=== PATIENT | female | born 1955 | race African-American/Black ===

== ENCOUNTER 2018-02-19 17:26 | Emergency (ER) | payer MEDICARE, MEDICAID ==
[~2018-02-19] VITALS: Ht 160 cm; Wt 73.0 kg
[2018-02-20] MEDS ORDERED: HYDROCODONE/ACETAMINOPHEN 5/325MG TABLET PO ONE (00:45)
[2018-02-20 00:52] VITALS: BP 140/88
== END 2018-02-20 01:40 | disposition home or self-care (01) ==
LOC: ER 17:26
DX: M79.601 Pain in right arm (principal); I12.0 Hypertensive chronic kidney disease with stage 5 chronic kidney disease or end stage renal disease; N18.6 End stage renal disease; R00.0 Tachycardia, unspecified; W01.0XXA Fall on same level from slipping, tripping and stumbling without subsequent striking against object, initial encounter; Y92.89 Other specified places as the place of occurrence of the external cause; Z99.2 Dependence on renal dialysis; F17.210 Nicotine dependence, cigarettes, uncomplicated
CPT/HCPCS: 73030; 73060; 99284

== ENCOUNTER 2018-05-25 19:27 | Inpatient (IN) | payer MEDICARE, MEDICAID ==
[~2018-05-25] VITALS: Ht 152.4 cm; Wt 65.8 kg
[2018-05-25 20:58] LABS: HEMATOCRIT. 35.9 % (36.0-48.0); HEMOGLOBIN. 11.1 g/dL (12.0-16.0); MEAN CORPUSCULAR HEMOGLOBIN 26.5 pg (28.0-32.0); MEAN CORPUSCULAR VOLUME 85.7 fL (81.0-99.0); MEAN PLATELET VOLUME 10.2 fl (7.4-10.4); PLATELET 70 x1000/uL (130-400); RED BLOOD CELL COUNT 4.18 mill/uL (4.2-5.4); RED CELL DISTRIBUTION WIDTH 16.9 % (11.6-14.6)
[2018-05-25 21:01] LABS: CHLORIDE 91 mEq/L (98-107)
[2018-05-25 21:56] LABS: NUCLEATED RED BLOOD CELLS 4 /100 WBC; PLATELET ESTIMATE DECREASED
[2018-05-26] VITALS (7 sets, daily range): BP systolic 85–105; BP diastolic 50–66
[2018-05-26] MEDS ORDERED: LEVOFLOXACIN 750MG PREMIX 150 ML IV ONE (00:15)
[2018-05-26] MEDS ORDERED: VANCOMYCIN 1 G PREMIX 200 ML IV ONE (00:15)
[2018-05-26] MEDS ORDERED: CLONIDINE 0.1MG TABLET PO PRN (00:15)
[2018-05-26] MEDS ORDERED: ONDANSETRON HCL 4MG/2ML VIAL IV PRN (00:15)
[2018-05-26] MEDS ORDERED: LEVOFLOXACIN 500MG PREMIX 100 ML IV SCH (00:15)
[2018-05-26] MEDS ORDERED: DIPHENHYDRAMINE 50MG/ML VIAL IV PRN (00:15)
[2018-05-26] MEDS: SODIUM CHLORIDE 0.9% INJ 3ML FLUSH IVF SCH ×3 (06:36→21:04)
[2018-05-26 07:35] LABS: HEMATOCRIT. 28.7 % (36.0-48.0); HEMOGLOBIN. 9.2 g/dL (12.0-16.0); MEAN CORPUSCULAR HEMOGLOBIN 26.6 pg (28.0-32.0); MEAN CORPUSCULAR VOLUME 83.2 fL (81.0-99.0); MEAN PLATELET VOLUME 10.4 fl (7.4-10.4); PLATELET 59 x1000/uL (130-400); RED BLOOD CELL COUNT 3.45 mill/uL (4.2-5.4); RED CELL DISTRIBUTION WIDTH 16.7 % (11.6-14.6)
[2018-05-26 07:37] LABS: AMMONIA 31 uMol/L (<32)
[2018-05-26 08:45] LABS: PLATELET ESTIMATE DECREASED
[2018-05-26 10:15] LABS: CHLORIDE 92 mEq/L (98-107)
[2018-05-26] MEDS ORDERED: POTASSIUM CHLORIDE 20MEQ TABLET SR PO SCH (13:30)
[2018-05-26] MEDS ORDERED: SODIUM CHLORIDE 0.9% 500 ML IV ONE (13:31)
[2018-05-26] MEDS ORDERED: ALBUMIN HUMAN 25GM/100ML (25%) IV NR (14:30)
[2018-05-26] MEDS ORDERED: AMLO10TA80 PO (19:46)
[2018-05-26] MEDS ORDERED: CALC0.5C10 PO (19:47)
[2018-05-26] MEDS ORDERED: CLON0.2T PO (19:49)
[2018-05-26] MEDS ORDERED: DOCU250C69 PO (19:50)
[2018-05-26] MEDS ORDERED: BISA-81 PO (19:52)
[2018-05-26] MEDS ORDERED: SEVE800T8 PO (19:53)
[2018-05-26] MEDS ORDERED: FOLI1TAB87 PO (19:54)
[2018-05-26] MEDS ORDERED: MEGE40TA27 MT (19:56)
[2018-05-26] MEDS ORDERED: LOSA100T14 PO (19:57)
[2018-05-26] MEDS ORDERED: EPOETIN ALFA 10000UNITS/ML VIAL SUBCUT NR (21:00)
[2018-05-27] VITALS: BP 102/59
[2018-05-27 04:00] VITALS: BP 106/61
[2018-05-27 05:05] LABS: PHOSPHORUS 3.3 mg/dL (2.5-4.9)
[2018-05-27] MEDS: SODIUM CHLORIDE 0.9% INJ 3ML FLUSH IVF SCH ×3 (06:22→21:27)
[2018-05-27 06:37] LABS: HEMATOCRIT. 26.7 % (36.0-48.0); HEMOGLOBIN. 8.5 g/dL (12.0-16.0); MEAN CORPUSCULAR HEMOGLOBIN 26.9 pg (28.0-32.0); MEAN CORPUSCULAR VOLUME 84.2 fL (81.0-99.0); MEAN PLATELET VOLUME 10.3 fl (7.4-10.4); PLATELET 56 x1000/uL (130-400); RED BLOOD CELL COUNT 3.17 mill/uL (4.2-5.4); RED CELL DISTRIBUTION WIDTH 17.3 % (11.6-14.6)
[2018-05-27 08:15] VITALS: BP 102/57
[2018-05-27 09:58] LABS: PLATELET ESTIMATE DECREASED
[2018-05-27 12:06] VITALS: BP 103/59
[2018-05-27 16:28] VITALS: BP 124/49
[2018-05-27 20:00] VITALS: BP 101/61
[2018-05-28] VITALS: BP 126/65
[2018-05-28] MEDS ORDERED: LEVOFLOXACIN 500MG PREMIX 100 ML IV SCH (01:00)
[2018-05-28 04:00] VITALS: BP 120/71
[2018-05-28 06:34] LABS: HEMATOCRIT. 27.6 % (36.0-48.0); HEMOGLOBIN. 8.8 g/dL (12.0-16.0); MEAN CORPUSCULAR HEMOGLOBIN 26.8 pg (28.0-32.0); MEAN CORPUSCULAR VOLUME 83.8 fL (81.0-99.0); MEAN PLATELET VOLUME 9.1 fl (7.4-10.4); RED BLOOD CELL COUNT 3.29 mill/uL (4.2-5.4)
[2018-05-28] MEDS: SODIUM CHLORIDE 0.9% INJ 3ML FLUSH IVF SCH ×3 (06:36→22:03)
[2018-05-28 06:43] LABS: PLATELET 39 x1000/uL (130-400)
[2018-05-28 07:53] VITALS: BP 111/66
[2018-05-28 10:15] LABS: PLATELET ESTIMATE MARKEDLY DECREASED
[2018-05-28 11:25] LABS: PHOSPHORUS 3.3 mg/dL (2.5-4.9)
[2018-05-28] MEDS ORDERED: POTASSIUM CHLORIDE 20MEQ TABLET SR PO NR ×2 (11:30→13:45)
[2018-05-28] MEDS ORDERED: POTASSIUM CHLORIDE 20MEQ TABLET SR PO ONE (11:45)
[2018-05-28] MEDS: POTASSIUM CHLORIDE 20MEQ TABLET SR PO NR ×2 (12:05→12:08)
[2018-05-28] MEDS ORDERED: POTASSIUM CHLORIDE 20MEQ TABLET SR PO SCH ×2 (13:30)
[2018-05-28 15:42] VITALS: BP 103/65
[2018-05-29 05:45] VITALS: BP 111/73
[2018-05-29] MEDS: SODIUM CHLORIDE 0.9% INJ 3ML FLUSH IVF SCH ×3 (06:50→21:55)
[2018-05-29 07:00] VITALS: BP 103/68
[2018-05-29] MEDS: POTASSIUM CHLORIDE 20MEQ TABLET SR PO SCH (09:13)
[2018-05-29 10:35] LABS: BASOPHILS % 0.4 % (0.0-2.0); EOSINOPHILS % 0.2 % (0.0-5.0); HEMATOCRIT. 30.7 % (36.0-48.0); HEMOGLOBIN. 9.8 g/dL (12.0-16.0); LYMPHOCYTES % 9.6 % (20.0-50.0); MEAN CORPUSCULAR HEMOGLOBIN 26.6 pg (28.0-32.0); MEAN CORPUSCULAR VOLUME 83.6 fL (81.0-99.0); MEAN PLATELET VOLUME 9.9 fl (7.4-10.4); MONOCYTES % 6.7 % (2.0-8.0); NEUTROPHILS % 83.1 % (40.0-76.0); RED BLOOD CELL COUNT 3.67 mill/uL (4.2-5.4); RED CELL DISTRIBUTION WIDTH 18.8 % (11.6-14.6)
[2018-05-29 11:04] LABS: PLATELET 36 x1000/uL (130-400)
[2018-05-29 11:16] LABS: PHOSPHORUS 3.4 mg/dL (2.5-4.9)
[2018-05-29 12:11] VITALS: BP 108/70
[2018-05-29] MEDS ORDERED: VANCOMYCIN 1 G PREMIX 200 ML IV SCH (14:00)
[2018-05-29] MEDS ORDERED: MAGNESIUM SULFATE 2 GM in DEXTROSE 5% WATER 50 ML IV NR (15:00)
[2018-05-29 16:00] VITALS: BP 101/67
[2018-05-29 19:45] VITALS: BP 92/59
[2018-05-29] MEDS ORDERED: EPOETIN ALFA 10000UNITS/ML VIAL SUBCUT NR (21:00)
[2018-05-30] VITALS: BP 105/62
[2018-05-30] MEDS: SODIUM CHLORIDE 0.9% INJ 3ML FLUSH IVF SCH ×3 (00:40→21:12)
[2018-05-30] MEDS: CEFEPIME 1,000 MG in DEXTROSE 5% WATER 50 ML IV SCH ×2 (00:40→20:00)
[2018-05-30 04:00] VITALS: BP 92/56
[2018-05-30 07:02] LABS: BASOPHILS % 0.2 % (0.0-2.0); EOSINOPHILS % 0.8 % (0.0-5.0); HEMOGLOBIN. 8.5 g/dL (12.0-16.0); LYMPHOCYTES % 12.5 % (20.0-50.0); MEAN CORPUSCULAR HEMOGLOBIN 26.7 pg (28.0-32.0); MEAN CORPUSCULAR VOLUME 84.8 fL (81.0-99.0); MEAN PLATELET VOLUME 10.9 fl (7.4-10.4); NEUTROPHILS % 78.5 % (40.0-76.0); RED BLOOD CELL COUNT 3.19 mill/uL (4.2-5.4); RED CELL DISTRIBUTION WIDTH 20.4 % (11.6-14.6)
[2018-05-30 07:51] LABS: PHOSPHORUS 3.4 mg/dL (2.5-4.9)
[2018-05-30 08:00] VITALS: BP 100/63
[2018-05-30] MEDS: POTASSIUM CHLORIDE 20MEQ TABLET SR PO SCH (09:15)
[2018-05-30 11:12] LABS: PLATELET ESTIMATE MARKEDLY DECREASED
[2018-05-30 11:13] LABS: PLATELET 29 x1000/uL (130-400)
[2018-05-30 12:00] VITALS: BP 95/51
[2018-05-30 16:00] VITALS: BP 98/55
[2018-05-30 20:38] VITALS: BP 97/52
[2018-05-31] VITALS (8 sets, daily range): BP systolic 75–119; BP diastolic 36–54
[2018-05-31] MEDS: SODIUM CHLORIDE 0.9% INJ 3ML FLUSH IVF SCH ×3 (06:16→21:05)
[2018-05-31 06:17] LABS: HEMATOCRIT. 26.2 % (36.0-48.0); HEMOGLOBIN. 8.3 g/dL (12.0-16.0); MEAN CORPUSCULAR VOLUME 84.7 fL (81.0-99.0); RED BLOOD CELL COUNT 3.09 mill/uL (4.2-5.4); RED CELL DISTRIBUTION WIDTH 19.6 % (11.6-14.6)
[2018-05-31 06:50] LABS: PHOSPHORUS 2.9 mg/dL (2.5-4.9)
[2018-05-31 06:55] LABS: PLATELET 20 x1000/uL (130-400)
[2018-05-31] MEDS: POTASSIUM CHLORIDE 20MEQ TABLET SR PO SCH (10:08)
[2018-05-31 16:24] LABS: PLATELET ESTIMATE MARKEDLY DECREASED
[2018-05-31] MEDS ORDERED: AMIKACIN SULFATE 450 MG in SODIUM CHLORIDE 0.9% 100 ML IV NR (17:00)
[2018-05-31] MEDS ORDERED: AMIKACIN 500MG in SODIUM CHLORIDE 0.9% 100ML IV NR (17:00)
[2018-05-31] MEDS ORDERED: SODIUM CHLORIDE 0.9% 500 ML IV ONE (20:45)
[2018-05-31] MEDS: EPOETIN ALFA 10000UNITS/ML VIAL SUBCUT SCH (21:06)
[2018-06-01 04:00] VITALS: BP 109/57
[2018-06-01] MEDS: SODIUM CHLORIDE 0.9% INJ 3ML FLUSH IVF SCH ×3 (05:08→14:00)
[2018-06-01 06:45] LABS: BASOPHILS % 0.6 % (0.0-2.0); HEMATOCRIT. 25.4 % (36.0-48.0); HEMOGLOBIN. 8.1 g/dL (12.0-16.0); LYMPHOCYTES % 15.4 % (20.0-50.0); MEAN CORPUSCULAR HEMOGLOBIN 27.1 pg (28.0-32.0); MEAN CORPUSCULAR VOLUME 85.1 fL (81.0-99.0); MONOCYTES % 7.3 % (2.0-8.0); NEUTROPHILS % 75.7 % (40.0-76.0); RED BLOOD CELL COUNT 2.98 mill/uL (4.2-5.4); RED CELL DISTRIBUTION WIDTH 21.1 % (11.6-14.6)
[2018-06-01 06:50] LABS: PLATELET 21 x1000/uL (130-400)
[2018-06-01 07:56] VITALS: BP 92/47
[2018-06-01 08:35] LABS: PHOSPHORUS 2.7 mg/dL (2.5-4.9)
[2018-06-01] MEDS ORDERED: MIDODRINE HCL 5MG TABLET PO SCH (09:00)
[2018-06-01] MEDS: MIDODRINE HCL 2.5MG TABLET PO SCH ×3 (09:36→18:09)
[2018-06-01] MEDS: POTASSIUM CHLORIDE 20MEQ TABLET SR PO SCH (09:36)
[2018-06-01 12:10] VITALS: BP 87/43
[2018-06-01 15:31] VITALS: BP 82/44
[2018-06-01] MEDS: ACETAMINOPHEN 325MG TABLET PO PRN (18:09)
[2018-06-01 20:00] VITALS: BP 98/50
[2018-06-02] VITALS: BP 91/54
[2018-06-02 04:00] VITALS: BP 92/48
[2018-06-02] MEDS: SODIUM CHLORIDE 0.9% INJ 3ML FLUSH IVF SCH ×3 (06:00→21:15)
[2018-06-02 08:00] VITALS: BP 100/52
[2018-06-02 08:11] LABS: HEMATOCRIT. 27.8 % (36.0-48.0); HEMOGLOBIN. 8.6 g/dL (12.0-16.0); MEAN CORPUSCULAR HEMOGLOBIN 26.9 pg (28.0-32.0); MEAN CORPUSCULAR VOLUME 86.4 fL (81.0-99.0); MEAN PLATELET VOLUME 12.2 fl (7.4-10.4); RED BLOOD CELL COUNT 3.21 mill/uL (4.2-5.4); RED CELL DISTRIBUTION WIDTH 22.5 % (11.6-14.6)
[2018-06-02 08:34] LABS: EOSINOPHILS % 1.1 % (0.0-5.0); LYMPHOCYTES % 14.5 % (20.0-50.0); MONOCYTES % 7.5 % (2.0-8.0); NEUTROPHILS % 76.4 % (40.0-76.0)
[2018-06-02 08:35] LABS: BASOPHILS % 0.5 % (0.0-2.0)
[2018-06-02 08:44] LABS: PHOSPHORUS 2.9 mg/dL (2.5-4.9)
[2018-06-02] MEDS: POTASSIUM CHLORIDE 20MEQ TABLET SR PO SCH (09:10)
[2018-06-02] MEDS: MIDODRINE HCL 2.5MG TABLET PO SCH ×3 (09:14→17:44)
[2018-06-02 09:54] LABS: PLATELET ESTIMATE MARKEDLY DECREASED
[2018-06-02 09:55] LABS: PLATELET 27 x1000/uL (130-400)
[2018-06-02 12:00] VITALS: BP 91/43
[2018-06-02 16:00] VITALS: BP 90/44
[2018-06-02 20:00] VITALS: BP 87/46
[2018-06-02] MEDS: EPOETIN ALFA 10000UNITS/ML VIAL SUBCUT SCH (21:00)
[2018-06-03] VITALS (7 sets, daily range): BP systolic 77–100; BP diastolic 41–55
[2018-06-03] MEDS ORDERED: SODIUM CHLORIDE 0.9% 500 ML IV ONE ×2 (00:45)
[2018-06-03] MEDS: SODIUM CHLORIDE 0.9% INJ 3ML FLUSH IVF SCH ×3 (05:19→20:53)
[2018-06-03] MEDS ORDERED: POTASSIUM PHOS,M-BASIC-D-BASIC 10 MMOL in DEXT 5% WATER 246.6667 ML IV SCH ×2 (06:00→08:00)
[2018-06-03] MEDS: MAGNESIUM 1 G PREMIX 100 ML IV SCH ×2 (06:34→07:00)
[2018-06-03] MEDS: POTASSIUM CHLORIDE 20MEQ TABLET SR PO SCH (09:21)
[2018-06-03] MEDS: MIDODRINE HCL 2.5MG TABLET PO SCH (09:21)
[2018-06-03 11:06] LABS: BASOPHILS % 0.5 % (0.0-2.0); EOSINOPHILS % 0.9 % (0.0-5.0); HEMATOCRIT. 27.9 % (36.0-48.0); HEMOGLOBIN. 8.7 g/dL (12.0-16.0); LYMPHOCYTES % 15.9 % (20.0-50.0); MEAN CORPUSCULAR HEMOGLOBIN 27.1 pg (28.0-32.0); MEAN CORPUSCULAR VOLUME 86.5 fL (81.0-99.0); MEAN PLATELET VOLUME 10.9 fl (7.4-10.4); MONOCYTES % 8.8 % (2.0-8.0); NEUTROPHILS % 73.9 % (40.0-76.0); RED BLOOD CELL COUNT 3.22 mill/uL (4.2-5.4); RED CELL DISTRIBUTION WIDTH 23.8 % (11.6-14.6)
[2018-06-03 11:18] LABS: PLATELET 18 x1000/uL (130-400)
[2018-06-03 11:21] LABS: CHLORIDE 97 mEq/L (98-107)
[2018-06-03 11:32] LABS: PHOSPHORUS 3.3 mg/dL (2.5-4.9)
[2018-06-03] MEDS: MIDODRINE HCL 10 MG TABLET PO SCH ×2 (15:42→16:57)
[2018-06-03] MEDS: ASCORBIC ACID 250 MG TABLET PO SCH (15:42)
[2018-06-03] MEDS: ZINC SULFATE 220 MG ( 50 ) CAPSULE PO SCH (17:15)
[2018-06-04 00:39] VITALS: BP 80/46
[2018-06-04 04:00] VITALS: BP_SYST 130; BP_SYST 84; BP_DIAS 51; BP_DIAS 77
[2018-06-04] MEDS: SODIUM CHLORIDE 0.9% INJ 3ML FLUSH IVF SCH ×3 (05:45→21:43)
[2018-06-04 07:09] LABS: BASOPHILS % 0.9 % (0.0-2.0); EOSINOPHILS % 1.1 % (0.0-5.0); HEMATOCRIT. 27.2 % (36.0-48.0); HEMOGLOBIN. 8.6 g/dL (12.0-16.0); LYMPHOCYTES % 21.1 % (20.0-50.0); MEAN CORPUSCULAR HEMOGLOBIN 27.3 pg (28.0-32.0); MEAN CORPUSCULAR VOLUME 86.2 fL (81.0-99.0); MONOCYTES % 9.9 % (2.0-8.0); RED BLOOD CELL COUNT 3.16 mill/uL (4.2-5.4); RED CELL DISTRIBUTION WIDTH 23.4 % (11.6-14.6)
[2018-06-04 07:20] LABS: CHLORIDE 97 mEq/L (98-107)
[2018-06-04 07:30] LABS: CREATINE KINASE 18 IU/L (26-192)
[2018-06-04 07:33] LABS: CREATINE KINASE MB FRACTION 4.1 ng/mL (0.5-3.6)
[2018-06-04 07:49] LABS: PLATELET 26 x1000/uL (130-400)
[2018-06-04 08:02] VITALS: BP 79/50
[2018-06-04] MEDS: MIDODRINE HCL 10 MG TABLET PO SCH ×3 (09:06→17:22)
[2018-06-04] MEDS: ZINC SULFATE 220 MG ( 50 ) CAPSULE PO SCH (09:06)
[2018-06-04] MEDS: POTASSIUM CHLORIDE 20MEQ TABLET SR PO SCH (09:06)
[2018-06-04] MEDS: ASCORBIC ACID 250 MG TABLET PO SCH (09:06)
[2018-06-04 11:39] VITALS: BP 89/48
[2018-06-04] MEDS: ACETAMINOPHEN 325MG TABLET PO PRN (12:24)
[2018-06-04 16:10] VITALS: BP 86/52
[2018-06-04 20:49] VITALS: BP 110/66
[2018-06-05] VITALS: BP 95/57
[2018-06-05 04:31] VITALS: BP 107/52
[2018-06-05] MEDS: SODIUM CHLORIDE 0.9% INJ 3ML FLUSH IVF SCH ×3 (06:48→21:27)
[2018-06-05 06:52] LABS: HEMATOCRIT. 29.2 % (36.0-48.0); MEAN CORPUSCULAR HEMOGLOBIN 27.2 pg (28.0-32.0); MEAN PLATELET VOLUME 11.4 fl (7.4-10.4); RED BLOOD CELL COUNT 3.32 mill/uL (4.2-5.4); RED CELL DISTRIBUTION WIDTH 24.7 % (11.6-14.6)
[2018-06-05 08:00] VITALS: BP 111/54
[2018-06-05 08:12] LABS: PHOSPHORUS 3.7 mg/dL (2.5-4.9)
[2018-06-05 09:22] LABS: PLATELET 27 x1000/uL (130-400)
[2018-06-05] MEDS: MIDODRINE HCL 10 MG TABLET PO SCH ×3 (10:18→17:04)
[2018-06-05] MEDS: ZINC SULFATE 220 MG ( 50 ) CAPSULE PO SCH (10:18)
[2018-06-05] MEDS: ASCORBIC ACID 250 MG TABLET PO SCH (10:18)
[2018-06-05] MEDS: POTASSIUM CHLORIDE 20MEQ TABLET SR PO SCH (10:19)
[2018-06-05 12:00] VITALS: BP 115/48
[2018-06-05 13:30] LABS: PLATELET ESTIMATE MARKEDLY DECREASED
[2018-06-05 16:00] VITALS: BP 122/64
[2018-06-05 20:00] VITALS: BP 114/54
[2018-06-05] MEDS: EPOETIN ALFA 10000UNITS/ML VIAL SUBCUT SCH (21:26)
== END 2018-06-05 21:55 | disposition home or self-care (01) | DRG 871 ==
LOC: ER 19:27 → 6WST 23:58 → ENRESERV 05-26 01:56 → 6WST 05-26 08:25
PROVIDERS: ADMIT Internal Medicine; ATTEND Internal Medicine
PROC: 3E1M39Z Irrigation of Peritoneal Cavity using Dialysate, Percutaneous Approach (ICD-10-PCS; principal; 2018-05-26)
DX: A41.9 Sepsis, unspecified organism (principal); G93.41 Metabolic encephalopathy; N18.6 End stage renal disease; E43 Unspecified severe protein-calorie malnutrition; J18.9 Pneumonia, unspecified organism; S42.201A Unspecified fracture of upper end of right humerus, initial encounter for closed fracture; E87.1 Hypo-osmolality and hyponatremia; I12.0 Hypertensive chronic kidney disease with stage 5 chronic kidney disease or end stage renal disease; D61.818 Other pancytopenia; I47.2 Ventricular tachycardia; G90.8 Other disorders of autonomic nervous system; E87.6 Hypokalemia; L89.150 Pressure ulcer of sacral region, unstageable; L89.300 Pressure ulcer of unspecified buttock, unstageable; D63.8 Anemia in other chronic diseases classified elsewhere; E11.22 Type 2 diabetes mellitus with diabetic chronic kidney disease; E83.42 Hypomagnesemia; I95.9 Hypotension, unspecified; Z82.49 Family history of ischemic heart disease and other diseases of the circulatory system; Z99.2 Dependence on renal dialysis; Z88.1 Allergy status to other antibiotic agents; Z79.899 Other long term (current) drug therapy; W18.39XA Other fall on same level, initial encounter; Y93.89 Activity, other specified; Y92.098 Other place in other non-institutional residence as the place of occurrence of the external cause; Y99.8 Other external cause status; Z88.8 Allergy status to other drugs, medicaments and biological substances
CPT/HCPCS: 36415; 70450; 70551; 71045; 71250; 73060; 74176; 80048; 80053; 80150; 80202; 82140; 82270; 82533; 82550; 82553; 83735; 83880; 84100; 84145; 84443; 84484; 85025; 85379; 87040; 87070; 87205; 87493; 93005; 93306; 93880; 93970; 96365; 96375; 97162; 99291; A4565; A6261; C1893; J0278; J0692; J0885; J1200; J1956; J3370; J3475; J3490; J7040; J7050; J7060; P9047

== ENCOUNTER 2018-07-05 13:19 | Inpatient (IN) | payer MEDICARE, MEDICAID ==
[~2018-07-05] VITALS: Ht 152.4 cm; Wt 77.6 kg
[2018-07-05] VITALS (28 sets, daily range): BP systolic 73–137; BP diastolic 29–82
[~2018-07-05 13:19] MED LIST: BISA-81 PO; CALC0.5C10 PO; DOCU250C69 PO; FOLI1TAB87 PO; SEVE800T8 PO
[2018-07-05] MEDS ORDERED: SODIUM CHLORIDE 0.9% 1,000 ML IV ONE (13:39)
[2018-07-05] MEDS ORDERED: NOREPINEPHRINE 4 MG in DEXT 5% WATER 250 ML IV STA (13:39)
[2018-07-05] MEDS ORDERED: NOREPINEPHRINE 4 MG in DEXT 5% WATER 246 ML IV STA ×2 (13:47→16:20)
[2018-07-05 14:01] LABS: BG BASE EXCESS 0.4 mmol/L (-2.0-2.0); BG CARBOXYHEMOGLOBIN 0.7 % (0.5-1.5); BG DEOXYHEMOGLOBIN 3.9 % (0.0-5.0); BG HCO3 ACT 23.6 mmol/L (22.0-26.0); BG METHEMOGLOBIN 0.2 % (0.0-1.5); BG OXYGEN SATURATION 96.1 % (92.0-98.5); BG OXYHEMOGLOBIN 95.2 % (94.0-97.0); BG PH 7.472 (7.350-7.450); BG PO2 82.2 mmHg (75.0-100.0); BG SAMPLE SITE RIGHT RADIAL; BG TOTAL HEMOGLOBIN 10.9 g/dL (12.0-18.0); BG VENT MODE NASAL CANNULA
[2018-07-05] MEDS ORDERED: VANCOMYCIN 1 G PREMIX 200 ML IV SCH (14:15)
[2018-07-05] MEDS ORDERED: GENTAMICIN 80MG PREMIX 100 ML IV ONE (14:15)
[2018-07-05 15:10] LABS: HEMATOCRIT. 31.2 % (36.0-48.0); HEMOGLOBIN. 9.6 g/dL (12.0-16.0); MEAN CORPUSCULAR HEMOGLOBIN 27.7 pg (28.0-32.0); MEAN CORPUSCULAR VOLUME 89.6 fL (81.0-99.0); MEAN PLATELET VOLUME 10.4 fl (7.4-10.4); PLATELET 54 x1000/uL (130-400); RED BLOOD CELL COUNT 3.49 mill/uL (4.2-5.4); RED CELL DISTRIBUTION WIDTH 20.7 % (11.6-14.6)
[2018-07-05 15:17] LABS: CHLORIDE 103 mEq/L (98-107)
[2018-07-05 15:23] LABS: PHOSPHORUS 3.4 mg/dL (2.5-4.9)
[2018-07-05 15:24] LABS: INR 1.4; PARTIAL THROMBOPLASTIN TIME 32.3 sec (23.4-31.0); PROTHROMBIN TIME 13.8 sec (9.1-11.1)
[2018-07-05 15:30] LABS: AMMONIA < 10 uMol/L (<32)
[2018-07-05 15:45] LABS: PLATELET ESTIMATE MARKEDLY DECREASED
[2018-07-05] MEDS ORDERED: PHENYLEPHRINE 40 MG in DEXT 5% WATER 246 ML IV STA (15:51)
[2018-07-05] MEDS ORDERED: DEXTROSE 50% WATER 50ML SYRINGE IV ONE ×2 (16:15→16:17)
[2018-07-05] MEDS ORDERED: PHENYLEPHRINE 40 MG in DEXT 5% WATER 246 ML IV NR (16:30)
[2018-07-05] MEDS ORDERED: ACETAMINOPHEN 325MG TABLET PO PRN (17:45)
[2018-07-05] MEDS ORDERED: DIPHENHYDRAMINE 50MG/ML VIAL IV PRN (17:45)
[2018-07-05] MEDS ORDERED: IPRATROPIUM/ALBUTEROL 0.5-3(2.5)MG/3ML NEB INH PRN (17:45)
[2018-07-05] MEDS ORDERED: VANCOMYCIN 500 MG PREMIX 100 ML IV SCH (20:00)
[2018-07-05] MEDS: NOREPINEPHRINE 4 MG in DEXT 5% WATER 246 ML IV PRN (20:23)
[2018-07-05] MEDS: SODIUM CHLORIDE 0.9% 1,000 ML IV SCH (20:47)
[2018-07-06] VITALS (112 sets, daily range): BP systolic 57–152; BP diastolic 24–89
[2018-07-06] MEDS: NOREPINEPHRINE 4 MG in DEXT 5% WATER 246 ML IV PRN ×2 (05:08→12:23)
[2018-07-06 06:07] LABS: HEMATOCRIT. 31.4 % (36.0-48.0); MEAN CORPUSCULAR HEMOGLOBIN 28.4 pg (28.0-32.0); MEAN CORPUSCULAR VOLUME 89.2 fL (81.0-99.0); MEAN PLATELET VOLUME 10.2 fl (7.4-10.4); PLATELET 66 x1000/uL (130-400); RED BLOOD CELL COUNT 3.53 mill/uL (4.2-5.4); RED CELL DISTRIBUTION WIDTH 19.9 % (11.6-14.6)
[2018-07-06 06:31] LABS: CHLORIDE 102 mEq/L (98-107)
[2018-07-06 06:57] LABS: CREATINE KINASE 46 IU/L (26-192)
[2018-07-06 07:00] LABS: CREATINE KINASE MB FRACTION 5.3 ng/mL (0.5-3.6)
[2018-07-06] MEDS: SODIUM CHLORIDE 0.9% 1,000 ML IV SCH (09:48)
[2018-07-06 10:23] LABS: PLATELET ESTIMATE DECREASED
[2018-07-06] MEDS: IPRATROPIUM/ALBUTEROL 0.5-3(2.5)MG/3ML NEB HHN SCH ×3 (12:00→20:25)
[2018-07-06] MEDS ORDERED: ALBUMIN HUMAN 25GM/100ML (25%) IV NR (13:15)
[2018-07-06] MEDS ORDERED: VANCOMYCIN 1 G PREMIX 200 ML IV SCH (14:00)
[2018-07-06] MEDS ORDERED: NOREPINEPHRINE 16 MG in DEXT 5% WATER 234 ML IV PRN (14:00)
[2018-07-06] MEDS ORDERED: CEFEPIME 1,000 MG in DEXTROSE 5% WATER 50 ML IV SCH (16:00)
[2018-07-06] MEDS: MIDODRINE HCL 5MG TABLET PO SCH ×3 (17:00→22:03)
[2018-07-06] MEDS: PANTOPRAZOLE SODIUM 40 MG/VIAL IV SCH (19:00)
[2018-07-06] MEDS ORDERED: EPOETIN ALFA 4000UNITS/ML VIAL SUBCUT SCH (21:00)
[2018-07-07] VITALS (89 sets, daily range): BP systolic 67–135; BP diastolic 38–81
[2018-07-07] MEDS: IPRATROPIUM/ALBUTEROL 0.5-3(2.5)MG/3ML NEB HHN SCH ×7 (00:10→23:51)
[2018-07-07 06:47] LABS: CHLORIDE 103 mEq/L (98-107)
[2018-07-07 07:07] LABS: PHOSPHORUS 2.3 mg/dL (2.5-4.9)
[2018-07-07 08:59] LABS: HEMATOCRIT. 26.3 % (36.0-48.0); HEMOGLOBIN. 8.5 g/dL (12.0-16.0); MEAN CORPUSCULAR VOLUME 87.4 fL (81.0-99.0); MEAN PLATELET VOLUME 11.5 fl (7.4-10.4); RED BLOOD CELL COUNT 3.01 mill/uL (4.2-5.4); RED CELL DISTRIBUTION WIDTH 19.7 % (11.6-14.6)
[2018-07-07 09:20] LABS: PLATELET 40 x1000/uL (130-400)
[2018-07-07] MEDS ORDERED: PHENYLEPHRINE 80 MG in DEXT 5% WATER 500 ML IV PRN (10:30)
[2018-07-07] MEDS ORDERED: PHENYLEPHRINE 20 MG in DEXT 5% WATER 248 ML IV PRN (10:45)
[2018-07-07] MEDS ORDERED: PHENYLEPHRINE 80 MG in DEXT 5% WATER 492 ML IV PRN (11:00)
[2018-07-07] MEDS: PANTOPRAZOLE SODIUM 40 MG/VIAL IV SCH (11:00)
[2018-07-07] MEDS: MIDODRINE HCL 10 MG TABLET PO SCH ×3 (11:00→21:08)
[2018-07-07] MEDS: PHENYLEPHRINE 80 MG in DEXT 5% WATER 492 ML IV PRN ×2 (11:01→22:45)
[2018-07-07 11:38] LABS: ATYPICAL LYMPHOCYTES 1; PLATELET ESTIMATE MARKEDLY DECREASED
[2018-07-07] MEDS: CEFEPIME 500 MG in DEXTROSE 5% WATER 50 ML IV SCH (15:22)
[2018-07-07] MEDS ORDERED: NOREPINEPHRINE 4 MG in DEXT 5% WATER 246 ML IV PRN (17:15)
[2018-07-07] MEDS ORDERED: WATER IV PRN (17:45)
[2018-07-07] MEDS ORDERED: NOREPINEPHRINE IV PRN (17:45)
[2018-07-07] MEDS ORDERED: DEXT 5% IV PRN (17:45)
[2018-07-07] MEDS: NOREPINEPHRINE 16 MG in DEXTROSE 5% WATER 250 ML IV PRN (20:37)
[2018-07-08] VITALS (90 sets, daily range): BP systolic 78–142; BP diastolic 23–90
[2018-07-08] MEDS: IPRATROPIUM/ALBUTEROL 0.5-3(2.5)MG/3ML NEB HHN SCH ×5 (03:52→20:30)
[2018-07-08 06:23] LABS: PHOSPHORUS 1.8 mg/dL (2.5-4.9)
[2018-07-08] MEDS: PANTOPRAZOLE SODIUM 40 MG/VIAL IV SCH (10:10)
[2018-07-08] MEDS: MIDODRINE HCL 10 MG TABLET PO SCH ×3 (10:10→17:52)
[2018-07-08] MEDS ORDERED: SODIUM PHOS,M-BASIC-D-BASIC 15 MM in DEXT 5% WATER 245 ML IV ONE (10:15)
[2018-07-08] MEDS: PHENYLEPHRINE 80 MG in DEXT 5% WATER 492 ML IV PRN ×2 (11:09→22:07)
[2018-07-08] MEDS ORDERED: SODIUM CHLORIDE 0.9% 500 ML IV ONE (11:30)
[2018-07-08] MEDS ORDERED: ALBUMIN HUMAN 25GM/100ML (25%) IV NR (11:30)
[2018-07-08 12:17] LABS: HEMATOCRIT. 27.6 % (36.0-48.0); HEMOGLOBIN. 8.8 g/dL (12.0-16.0); MEAN CORPUSCULAR HEMOGLOBIN 27.8 pg (28.0-32.0); MEAN CORPUSCULAR VOLUME 87.1 fL (81.0-99.0); MEAN PLATELET VOLUME 10.3 fl (7.4-10.4); RED BLOOD CELL COUNT 3.17 mill/uL (4.2-5.4); RED CELL DISTRIBUTION WIDTH 19.7 % (11.6-14.6)
[2018-07-08 12:35] LABS: PLATELET 29 x1000/uL (130-400)
[2018-07-08] MEDS ORDERED: EPOETIN ALFA 10000UNITS/ML VIAL SUBCUT SCH (13:00)
[2018-07-08 13:20] LABS: NUCLEATED RED BLOOD CELLS 1 /100 WBC
[2018-07-08 13:21] LABS: PLATELET ESTIMATE MARKEDLY DECREASED
[2018-07-08] MEDS: CEFEPIME 500 MG in DEXTROSE 5% WATER 50 ML IV SCH (17:52)
[2018-07-08] MEDS: ONDANSETRON HCL 4MG/2ML VIAL IV PRN (19:34)
[2018-07-09] VITALS (102 sets, daily range): BP systolic 63–173; BP diastolic 24–116
[2018-07-09] MEDS: IPRATROPIUM/ALBUTEROL 0.5-3(2.5)MG/3ML NEB HHN SCH ×6 (00:25→20:13)
[2018-07-09] MEDS: ONDANSETRON HCL 4MG/2ML VIAL IV PRN ×2 (05:38→17:06)
[2018-07-09 05:42] LABS: HEMATOCRIT. 24.4 % (36.0-48.0); HEMOGLOBIN. 7.7 g/dL (12.0-16.0); MEAN CORPUSCULAR HEMOGLOBIN 27.5 pg (28.0-32.0); MEAN CORPUSCULAR VOLUME 87.5 fL (81.0-99.0); MEAN PLATELET VOLUME 11.7 fl (7.4-10.4); RED BLOOD CELL COUNT 2.79 mill/uL (4.2-5.4)
[2018-07-09 06:02] LABS: PHOSPHORUS 2.2 mg/dL (2.5-4.9)
[2018-07-09 06:25] LABS: PLATELET 29 x1000/uL (130-400)
[2018-07-09] MEDS ORDERED: KCL 20MEQ/100ML PREMIX 100 ML IV ONE (07:00)
[2018-07-09] MEDS: MIDODRINE HCL 10 MG TABLET PO SCH ×3 (08:13→17:00)
[2018-07-09] MEDS: PHENYLEPHRINE 80 MG in DEXT 5% WATER 492 ML IV PRN ×3 (08:13→23:18)
[2018-07-09] MEDS: PANTOPRAZOLE SODIUM 40 MG/VIAL IV SCH (08:13)
[2018-07-09] MEDS ORDERED: POTASSIUM CHLORIDE INJ 40 MEQ in DEXT 5% WATER 250 ML IV NR (08:30)
[2018-07-09] MEDS ORDERED: MAGNESIUM SULFATE 2 GM in DEXTROSE 5% WATER 50 ML IV NR (09:00)
[2018-07-09 09:54] LABS: BG BASE EXCESS -4.3 mmol/L (-2.0-2.0); BG CARBOXYHEMOGLOBIN 1.3 % (0.5-1.5); BG DEOXYHEMOGLOBIN 2.4 % (0.0-5.0); BG FRACTION INSPIRED OXYGEN 32; BG HCO3 ACT 17.8 mmol/L (22.0-26.0); BG METHEMOGLOBIN 0.4 % (0.0-1.5); BG OXYGEN SATURATION 97.6 % (92.0-98.5); BG OXYHEMOGLOBIN 95.9 % (94.0-97.0); BG PCO2 22.8 mmHg (35.0-45.0); BG PO2 96.1 mmHg (75.0-100.0); BG SAMPLE SITE RIGHT RADIAL; BG TOTAL HEMOGLOBIN 8.5 g/dL (12.0-18.0); BG VENT MODE NASAL CANNULA
[2018-07-09 10:02] LABS: PLATELET ESTIMATE MARKEDLY DECREASED
[2018-07-09] MEDS: NOREPINEPHRINE 16 MG in DEXTROSE 5% WATER 250 ML IV PRN (12:02)
[2018-07-09] MEDS: CEFEPIME 500 MG in DEXTROSE 5% WATER 50 ML IV SCH (17:25)
[2018-07-09] MEDS ORDERED: VANCOMYCIN 1 G PREMIX 200 ML IV NR (18:00)
[2018-07-09] MEDS ORDERED: EPOETIN ALFA 10000UNITS/ML VIAL SUBCUT SCH (21:00)
[2018-07-09] MEDS: KETOROLAC 15MG/ML VIAL IV PRN (22:00)
[2018-07-10] VITALS (79 sets, daily range): BP systolic 47–193; BP diastolic 19–159
[2018-07-10] MEDS: IPRATROPIUM/ALBUTEROL 0.5-3(2.5)MG/3ML NEB HHN SCH ×4 (00:13→12:37)
[2018-07-10] MEDS: NOREPINEPHRINE 16 MG in DEXTROSE 5% WATER 250 ML IV PRN (04:28)
[2018-07-10 08:20] LABS: BG BASE EXCESS -6.4 mmol/L (-2.0-2.0); BG CARBOXYHEMOGLOBIN 1.9 % (0.5-1.5); BG DEOXYHEMOGLOBIN 14.6 % (0.0-5.0); BG FRACTION INSPIRED OXYGEN 44; BG HCO3 ACT 15.2 mmol/L (22.0-26.0); BG METHEMOGLOBIN 0.3 % (0.0-1.5); BG OXYGEN SATURATION 85.1 % (92.0-98.5); BG OXYHEMOGLOBIN 83.2 % (94.0-97.0); BG PH 7.458 (7.350-7.450); BG PO2 47.3 mmHg (75.0-100.0); BG SAMPLE SITE RIGHT RADIAL; BG TOTAL HEMOGLOBIN 14.2 g/dL (12.0-18.0); BG VENT MODE NASAL CANNULA
[2018-07-10 09:07] LABS: HEMATOCRIT. 42.4 % (36.0-48.0); HEMOGLOBIN. 13.9 g/dL (12.0-16.0); MEAN CORPUSCULAR VOLUME 88.5 fL (81.0-99.0); MEAN PLATELET VOLUME 15.5 fl (7.4-10.4); RED BLOOD CELL COUNT 4.78 mill/uL (4.2-5.4); RED CELL DISTRIBUTION WIDTH 16.3 % (11.6-14.6)
[2018-07-10 09:15] LABS: PHOSPHORUS 2.4 mg/dL (2.5-4.9)
[2018-07-10] MEDS: MIDODRINE HCL 10 MG TABLET PO SCH ×3 (09:22→17:00)
[2018-07-10] MEDS: PANTOPRAZOLE SODIUM 40 MG/VIAL IV SCH (09:22)
[2018-07-10 09:23] LABS: PLATELET 43 x1000/uL (130-400)
[2018-07-10] MEDS: SODIUM BICARBONATE 8.4% 1 MEQ/ML 50ML SYR IV SCH ×2 (09:45→10:30)
[2018-07-10] MEDS ORDERED: SODIUM BICARBONATE 8.4% 1 MEQ/ML 50ML SYR IV ONE (09:49)
[2018-07-10] MEDS ORDERED: VASOPRESSIN 10 UNIT in SODIUM CHLORIDE 0.9% 99.5 ML IV PRN (10:15)
[2018-07-10 10:19] LABS: NUCLEATED RED BLOOD CELLS 1 /100 WBC
[2018-07-10 10:20] LABS: PLATELET ESTIMATE MARKEDLY DECREASED
[2018-07-10] MEDS ORDERED: SODIUM CHLORIDE 0.9% 1000ML BAG (SEPSIS BOLUS) IV NR (10:30)
[2018-07-10] MEDS ORDERED: PROPOFOL 10MG/ML 100ML 100 ML IV PRN (10:30)
[2018-07-10] MEDS ORDERED: ALBUMIN HUMAN 25GM/100ML (25%) IV NR ×2 (10:33→18:05)
[2018-07-10 12:41] LABS: BG BASE EXCESS -5.2 mmol/L (-2.0-2.0); BG CARBOXYHEMOGLOBIN 1.2 % (0.5-1.5); BG DEOXYHEMOGLOBIN 6.1 % (0.0-5.0); BG FRACTION INSPIRED OXYGEN 100; BG HCO3 ACT 17.4 mmol/L (22.0-26.0); BG METHEMOGLOBIN 0.3 % (0.0-1.5); BG OXYGEN SATURATION 93.8 % (92.0-98.5); BG OXYHEMOGLOBIN 92.4 % (94.0-97.0); BG PCO2 25.9 mmHg (35.0-45.0); BG PH 7.444 (7.350-7.450); BG PO2 68.4 mmHg (75.0-100.0); BG SAMPLE SITE RIGHT RADIAL; BG TIDAL VOLUME(mL) 450 mL; BG TOTAL HEMOGLOBIN 12.6 g/dL (12.0-18.0); BG VENT MODE VENT - A/C; BG VENT RATE 16 set
[2018-07-10] MEDS: KETOROLAC 15MG/ML VIAL IV PRN (13:16)
[2018-07-10] MEDS ORDERED: SUCCINYLCHOLINE CHLORIDE 200MG/10ML VIAL IV ONE (14:20)
[2018-07-10] MEDS ORDERED: LORAZEPAM 2MG/ML CPJ IM PRN (16:45)
[2018-07-10] MEDS ORDERED: FENTANYL CITRATE/PF 500 MCG in SODIUM CHLORIDE 0.9% 40 ML IV PRN (17:00)
[2018-07-10 17:11] LABS: HEMATOCRIT 41.3 % (36.0-48.0); HEMOGLOBIN 13.3 g/dL (12.0-16.0)
[2018-07-10] MEDS: CEFEPIME 500 MG in DEXTROSE 5% WATER 50 ML IV SCH (18:00)
[2018-07-10] MEDS ORDERED: SODIUM CHLORIDE 0.9% 500 ML IV NR (18:06)
[2018-07-10 18:19] LABS: BG BASE EXCESS -14.6 mmol/L (-2.0-2.0); BG CARBOXYHEMOGLOBIN 1.1 % (0.5-1.5); BG HCO3 ACT 13.8 mmol/L (22.0-26.0); BG METHEMOGLOBIN 0.1 % (0.0-1.5); BG OXYGEN SATURATION 49.4 % (92.0-98.5); BG OXYHEMOGLOBIN 48.8 % (94.0-97.0); BG PCO2 41.1 mmHg (35.0-45.0); BG PH 7.143 (7.350-7.450); BG PO2 33.3 mmHg (75.0-100.0); BG SAMPLE SITE RIGHT RADIAL; BG TIDAL VOLUME(mL) 450 mL; BG TOTAL HEMOGLOBIN 13.5 g/dL (12.0-18.0); BG VENT MODE VENT - A/C; BG VENT RATE 16 set
[2018-07-10] MEDS ORDERED: SODIUM BICARBONATE 8.4% 1 MEQ/ML 50ML SYR IV NR (18:30)
[2018-07-10] MEDS ORDERED: EPINEPHRINE 0.1MG/ML (1:10,000) 10ML SYR ONE (19:20)
[2018-07-10] MEDS ORDERED: CALCIUM CHLORIDE 1GM/10ML SYR IV ONE (19:20)
[2018-07-10] MEDS ORDERED: SODIUM BICARBONATE 7.5% 0.9 MEQ/ML 50ML SYR IV ONE (19:20)
[2018-07-10] MEDS ORDERED: SODIUM BICARBONATE 150 MEQ in DEXTROSE 5% WATER 1,000 ML IV SCH (20:00)
== END 2018-07-10 21:30 | disposition expired | DRG 871 ==
LOC: ER 13:19 → EDBEDREQ 14:55 → EDBEDREQTM 14:55 → ENRESERV 15:48 → CVICU 16:03
PROVIDERS: ADMIT Internal Medicine; ATTEND Internal Medicine
PROC: 05HY33Z Insertion of Infusion Device into Upper Vein, Percutaneous Approach (ICD-10-PCS; 2018-07-05)
PROC: B54MZZA Ultrasonography of Right Upper Extremity Veins, Guidance (ICD-10-PCS; 2018-07-05)
PROC: 5A1D70Z Performance of Urinary Filtration, Intermittent, Less than 6 Hours Per Day (ICD-10-PCS; 2018-07-06)
PROC: 30233N1 Transfusion of Nonautologous Red Blood Cells into Peripheral Vein, Percutaneous Approach (ICD-10-PCS; 2018-07-09)
PROC: 0BH17EZ Insertion of Endotracheal Airway into Trachea, Via Natural or Artificial Opening (ICD-10-PCS; principal; 2018-07-10)
PROC: 5A1935Z Respiratory Ventilation, Less than 24 Consecutive Hours (ICD-10-PCS; 2018-07-10)
PROC: 5A12012 Performance of Cardiac Output, Single, Manual (ICD-10-PCS; 2018-07-10)
DX: A41.9 Sepsis, unspecified organism (principal); J18.9 Pneumonia, unspecified organism; E43 Unspecified severe protein-calorie malnutrition; R65.21 Severe sepsis with septic shock; N18.6 End stage renal disease; J96.00 Acute respiratory failure, unspecified whether with hypoxia or hypercapnia; G93.40 Encephalopathy, unspecified; K29.61 Other gastritis with bleeding; S42.201A Unspecified fracture of upper end of right humerus, initial encounter for closed fracture; D68.9 Coagulation defect, unspecified; J90 Pleural effusion, not elsewhere classified; I12.0 Hypertensive chronic kidney disease with stage 5 chronic kidney disease or end stage renal disease; E87.2 Acidosis; K80.00 Calculus of gallbladder with acute cholecystitis without obstruction; R18.8 Other ascites; I46.9 Cardiac arrest, cause unspecified; E11.22 Type 2 diabetes mellitus with diabetic chronic kidney disease; E11.649 Type 2 diabetes mellitus with hypoglycemia without coma; L89.320 Pressure ulcer of left buttock, unstageable; L89.310 Pressure ulcer of right buttock, unstageable; K76.0 Fatty (change of) liver, not elsewhere classified; D69.6 Thrombocytopenia, unspecified; Z99.2 Dependence on renal dialysis; E87.6 Hypokalemia; D63.8 Anemia in other chronic diseases classified elsewhere; E83.42 Hypomagnesemia; R74.0 Nonspecific elevation of levels of transaminase and lactic acid dehydrogenase [LDH]; X58.XXXA Exposure to other specified factors, initial encounter; Y93.89 Activity, other specified; Y92.89 Other specified places as the place of occurrence of the external cause; Y99.8 Other external cause status; Z86.73 Personal history of transient ischemic attack (TIA), and cerebral infarction without residual deficits; Z88.1 Allergy status to other antibiotic agents; Z88.8 Allergy status to other drugs, medicaments and biological substances; Z68.33 Body mass index [BMI] 33.0-33.9, adult
CPT/HCPCS: 36415; 36569; 36600; 70450; 71045; 76700; 76937; 78580; 80048; 80053; 80202; 82140; 82270; 82375; 82550; 82553; 82805; 82962; 83605; 83690; 83735; 84100; 84134; 84145; 84484; 85014; 85018; 85025; 85379; 85610; 85730; 86850; 86900; 86920; 87040; 87070; 87205; 87493; 89050; 92610; 93005; 93306; 93970; 94640; 96361; 96374; 96375; 99291; A6261; C1725; C1769; C9113; J0330; J0692; J0885; J1580; J1885; J2370; J2405; J2704; J3370; J3475; J3480; J3490; J7030; J7040; J7050; J7060; J7070; J7620; P9016; P9047